=== PATIENT | male | born 1970 | race Caucasian/White ===

== ENCOUNTER 2016-09-16 14:57 | Emergency (ER) | payer MEDICAID, OTHER ==
--- NOTE | 2016-09-16 15:00 | EDPHY ---
H & P Time Seen by Provider: 09/16/16 14:57 HPI/ROS: CHIEF COMPLAINT: Seizure HISTORY OF PRESENT ILLNESS: 46-year-old man was moving a couch at the [email or web address] with a friend who does not see him very often. He said he felt funny and then his eyes rolled back, his friend helped him to the ground, and then he had a 2 minutes seizure. No trauma. Patient was confused on EMS arrival but glucose was 96. In the emergency department he has no complaints. REVIEW OF SYSTEMS: Eye: no change in vision ENT: no sore throat Cardiac: no chest pain or syncope or palpitation Pulmonary: no cough or SOB Abdomen: no vomiting, diarrhea, abdominal pain Musculoskeletal: no back pain or neck pain Skin: no rash Neuro: Mild headache Constitutional: no fever : no urinary symptoms A comprehensive 10 point review of systems is otherwise negative aside from elements mentioned in the history of present illness. PAST MEDICAL HISTORY: History of seizures, seen in the emergency department [facility] sneha Joiner for same. Social history: No drugs, neurologist is Dr. Hayden in [place]. Nonsmoker. General Appearance: Alert and conversant, cooperative. Eyes: No scleral icterus. ENT, Mouth: Normal mucous membranes. No tongue laceration or abrasion. Respiratory: Normal respiratory effort, breath sounds equal, lungs are clear to auscultation. Cardiovascular: Regular rate and rhythm. Tachycardic. Gastrointestinal: Abdomen is soft and non tender. Neurological: Alert and oriented x self and [place] but not to events. Normally conversant. Face symmetric, normal movement and sensation in all extremities. Skin: Warm and dry, no rashes. Musculoskeletal: No peripheral edema and no joint swelling. Psychiatric: Not agitated. Emergency Department course/MDM: Emergency department visit chart by myself from [facility] sneha Joiner personally reviewed. At that time he stated to me that he has a known seizure disorder on Keppra and Trileptal. This would be his 5th visit to our emergency department for seizure. Normal saline 1 L IV. Patient is noted to have sinus tachycardia on the monitor. He denies medication noncompliance. He still has the same neurology practice in [place]. Discussed with Dr. Hayden at 1518; 600 bid trileptal, Keppra 750 bid. CO2 level suggests likely seizure. Recommends continuing current medications, no change. She asked about sending levels, we do not have capacity to test for those medication levels and have the result tonight. 1545: hr down to 110-113, oriented, not ataxic or shaky, wants DC with friend, warned no driving until OK by neurologist. Smoking Status: Never smoked Constitutional: Initial Vital Signs Temperature (C) 37 C 09/16/16 15:13 Heart Rate 139 H 09/16/16 15:13 Respiratory Rate 15 09/16/16 15:13 Blood Pressure 122/76 H 09/16/16 15:13 O2 Sat (%) 94 09/16/16 15:13 O2 Delivery Mode Room Air Allergies/Adverse Reactions: No Known Allergies Allergy (Verified 09/16/16 15:13) Home Medications: Medication Instructions Recorded Keppra 01/24/15 Trileptal 01/24/15 Medical Decision Making - Diagnostics EKG Interpretation: 12-lead EKG interpreted by me; official reading is in trace master. My interpretation is sinus tachycardia at 131. with right axis. Differential Diagnosis: Differential diagnosis considered for a seizure including but not limited to electrolyte abnormality, alcohol withdrawal, medication noncompliance, head injury, and breakthrough seizure. - Data Points Laboratory Results: Laboratory Results 09/16/16 15:00 09/16/16 15:00 09/16/16 15:00 WBC 9.41 10^3/uL (3.80-9.50) RBC 5.14 10^6/uL (4.40-6.38) Hgb 16.6 g/dL (13.7-17.5) Hct 48.1 % (40.0-51.0) MCV 93.6 fL (81.5-99.8) MCH 32.3 pg (27.9-34.1) MCHC 34.5 g/dL (32.4-36.7) RDW 11.9 % (11.5-15.2) Plt Count 329 10^3/uL (150-400) MPV 8.9 fL (8.7-11.7) Neut % (Auto) 38.1 L % (39.3-74.2) Lymph % (Auto) 53.6 H % (15.0-45.0) [place] % (Auto) 7.7 % (4.5-13.0) Eos % (Auto) 0.0 L % (0.6-7.6) Baso % (Auto) 0.3 % (0.3-1.7) Nucleat RBC Rel Count 0.0 % (0.0-0.2) Absolute Neuts (auto) 3.59 10^3/uL (1.70-6.50) Absolute Lymphs (auto) 5.04 H 10^3/uL (1.00-3.00) Absolute Monos (auto) 0.72 10^3/uL (0.30-0.80) Absolute Eos (auto) 0.00 L 10^3/uL (0.03-0.40) Absolute Basos (auto) 0.03 10^3/uL (0.02-0.10) Absolute Nucleated RBC 0.00 10^3/uL (0-0.01) Immature Gran % 0.3 % (0.0-1.1) Immature Gran # 0.03 10^3/uL (0.00-0.10) Sodium 141 mEq/L (134-144) Potassium 4.3 mEq/L (3.5-5.2) Chloride 100 mEq/L (97-110) Carbon Dioxide 13 L mEq/l (22-31) Anion Gap 28 mEq/L (8-16) BUN 14 mg/dL (7-23) Creatinine 1.1 mg/dL (0.7-1.3) Estimated GFR > 60 Glucose 119 H mg/dL (70-100) Calcium 9.9 mg/dL (8.5-10.4) Medications Given: Discontinued Medications Sodium Chloride (Ns) 1,000 mls @ 0 mls/hr IV ONCE ONE PRN Reason: Wide Open Stop: 09/16/16 15:09 Last Admin: 09/16/16 15:16 Dose: 1,000 mls Sodium Chloride (Ns) 1,000 mls @ 0 mls/hr IV ONCE ONE PRN Reason: Wide Open Stop: 09/16/16 15:09 Last Admin: 09/16/16 15:22 Dose: 1,000 mls Departure - Departure Disposition: Home, Routine, Self-Care Clinical Impression: Seizure Condition: Good Instructions: Epilepsy (ED) Additional Instructions: No driving until OK by Dr. Moore in [place]. Referrals: Patient,NotPresent [Unknown] - As per Instructions (Dr. Hayden and Dr. Moore, your neurologists in [place])
[2016-09-16] MEDS ORDERED: NS 1,000 ML IV ONE ×2 (15:08)
[2016-09-16 15:16] LABS: % IMMATURE GRANULYOCYTES 0.3 % (0.0-1.1); ABSOLUTE IMMATURE GRANULOCYTES 0.03 10^3/uL (0.00-0.10); ADD DIFF? NO; ADD MORPH? NO; ADD SCAN? NO; ATYPICAL LYMPHOCYTE FLAG 10 (0-99); FRAGMENT RBC FLAG 0 (0-99); HEMATOCRIT 48.1 % (40.0-51.0); HEMOGLOBIN 16.6 g/dL (13.7-17.5); LEFT SHIFT FLG 0 (0-99); LIPEMIA HEMOLYSIS FLAG 90 (0-99); MEAN CELL HEMOGLOBIN 32.3 pg (27.9-34.1); MEAN CELL HEMOGLOBIN CONCENTR. 34.5 g/dL (32.4-36.7); MEAN CELL VOLUME 93.6 fL (81.5-99.8); MEAN PLATELET VOLUME 8.9 fL (8.7-11.7); PLATELET CLUMPS FLAG 0 (0-99); PLATELET COUNT 329 10^3/uL (150-400); RED BLOOD CELL COUNT 5.14 10^6/uL (4.40-6.38); RED CELL DISTRIBUTION WIDTH 11.9 % (11.5-15.2)
--- NOTE | 2016-09-16 15:17 | CPEKG ---
Heart Rate: 131 RR Interval: 458 P-R Interval: 136 QRSD Interval: 82 QT Interval: 312 QTC Interval: 461 P [place]: 43 QRS [place]: 162 T Wave [place]: 4 EKG Severity - OTHERWISE NORMAL ECG - EKG Impression: SINUS TACHYCARDIA EKG Impression: RIGHT AXIS DEVIATION Electronically Signed By: Jeremy Avalos 16-Sep-2016 15:23:44
[2016-09-16 15:31] LABS: ANION GAP 28 mEq/L (8-16); CALCIUM 9.9 mg/dL (8.5-10.4); CARBON DIOXIDE 13 mEq/l (22-31); CHLORIDE 100 mEq/L (97-110); CREATININE 1.1 mg/dL (0.7-1.3); GLOMERULAR FILTRATION RATE > 60; GLUCOSE 119 mg/dL (70-100); POTASSIUM 4.3 mEq/L (3.5-5.2); SODIUM 141 mEq/L (134-144)
[2016-09-16 15:47] VITALS: BP 124/78; PULSE 109; RESP 17; TEMP 98.4; O2SAT 95
== END 2016-09-16 15:47 | disposition home or self-care (01) ==
LOC: EDUNIT#
DX: G40.909 Epilepsy, unspecified, not intractable, without status epilepticus (principal)

== ENCOUNTER 2016-11-04 15:37 | Emergency (ER) | payer MEDICAID, OTHER ==
--- NOTE | 2016-11-04 15:33 | EDPHY ---
H & P Constitutional: Initial Vital Signs Temperature (C) 36.6 C 11/04/16 15:52 Heart Rate 130 H 11/04/16 15:52 Respiratory Rate 18 11/04/16 15:52 Blood Pressure 108/64 11/04/16 15:52 O2 Sat (%) 94 11/04/16 15:52 O2 Delivery Mode Room Air Allergies/Adverse Reactions: No Known Allergies Allergy (Verified 09/16/16 15:13) Home Medications: Medication Instructions Recorded Keppra 01/24/15 Trileptal 01/24/15 Medical Decision Making ED Course/Re-evaluation: CHIEF COMPLAINT: Seizure HISTORY OF PRESENT ILLNESS: The patient is a 41 y/o male arriving via EMS with confusion after a witnessed 1-minute seizure. He has been confused but cooperative throughout transport and was able to tell EMS he takes Dilantin for a seizure disorder and has breakthrough seizures every 2-3 months. Bystanders reported to EMS he walked into a store, seemed confused, then had about 1 minute of tonic-clonic activity. He has a hematoma on his right forehead, but denies any pain, and has no evidence of incontinence. He has been tachycardic in the 140 range for EMS. He continues to be confused on initial assessment. REVIEW OF SYSTEMS: Patient is unable to answer at this time due to postictal period. PHYSICAL EXAM: HR, BP, O2 Sat, RR. Temp noted General Appearance: Alert, well hydrated, confused, and non-toxic appearing. Head: Right forehead hematoma Eyes: Pupils equal, round, reactive to light and accommodation, EOMI, no trauma , no injection. Ears: Clear bilaterally, no perforation, normal landmarks Nose: Atraumatic, no rhinorrhea, clear. Throat: There is no erythema or exudates, no lesions, normal tonsils, mucus membranes moist. Neck: Supple, nontender, no lymphadenopathy. Respiratory: No retractions, no distress, no wheezes, and no accessory muscle use. Lungs are clear to auscultation bilaterally. Cardiovascular: Tachycardic regular rate and rhythm, no murmurs, rubs, or gallops. Good capillary refill all extremities. Gastrointestinal: Abdomen is soft, nontender, non-distended, no masses, no rebound, no guarding, no peritoneal signs. No incontinence. Musculoskeletal: Normal active ROM of all extremities, atraumatic. Neurological: Alert, confused, oriented x2, cooperative and interactive. The patient has normal DTRs and non-focal cranial nerves, motor, sensory, and cerebellar exam. Skin: No rashes, good turgor, no nodules on palpation. Past medical history: Seizure disorder Past surgical history: unknown Family history: unknown Social history: Neurologist: Dr. Hayden in [place] Prior medical records reviewed including ED visit August 2016 for seizure. DIFFERENTIAL DIAGNOSIS: The differential diagnosis for the patient's seizure included but was not limited to electrolyte abnormality, alcohol withdrawal, medication noncompliance, head injury, DIRECTOR CARDIOVASCULAR structural abnormality, and break through seizure. MEDICAL DECISION MAKIN: Met EMS upon arrival and took report. This is a confused 46 y/o male with a seizure disorder who had a witnessed 1-min seizure this afternoon. He continues to be somewhat confused, but is able to tell us he takes Dilantin and has a few breakthrough seizures each year. His history shows a couple ED visits for similar presentations. No evidence of alcohol abuse in prior records or on exam. He has a small hematoma to his right forehead, but is otherwise atraumatic. Plan for head CT and labs including Dilantin level. 1540: Patient removed his own c-collar. He denies midline neck or back pain, weakness, or paresthesias. 1600: Patient is completely alert and oriented and is refusing all treatments at this time. His Dilantin level is still pending. He states he does not take Dilantin and does take Keppra. I've cancelled the CT order. He's been given return precautions and referral to neurology for follow up. I've advised him not to drive or do any activities that could put others at risk until cleared by neurology. He agrees with plan. - Data Points Laboratory Results: Laboratory Results 11/04/16 15:41 11/04/16 11/04/16 15:41 15:41 WBC 11.91 10^3/uL H 10^3/uL (3.80-9.50) RBC 4.86 10^6/uL 10^6/uL (4.40-6.38) Hgb 15.5 g/dL g/dL (13.7-17.5) Hct 49.0 % % (40.0-51.0) MCV 100.8 fL H fL (81.5-99.8) MCH 31.9 pg pg (27.9-34.1) MCHC 31.6 g/dL L g/dL (32.4-36.7) RDW 12.7 % % (11.5-15.2) Plt Count 366 10^3/uL 10^3/uL (150-400) MPV 9.4 fL fL (8.7-11.7) Neut % (Auto) 39.6 % % (39.3-74.2) Lymph % (Auto) 49.4 % H % (15.0-45.0) [place] % (Auto) 10.2 % % (4.5-13.0) Eos % (Auto) 0.0 % L % (0.6-7.6) Baso % (Auto) 0.3 % % (0.3-1.7) Nucleat RBC Rel Count 0.0 % % (0.0-0.2) Absolute Neuts (auto) 4.73 10^3/uL 10^3/uL (1.70-6.50) Absolute Lymphs (auto) 5.88 10^3/uL H 10^3/uL (1.00-3.00) Absolute Monos (auto) 1.21 10^3/uL H 10^3/uL (0.30-0.80) Absolute Eos (auto) 0.00 10^3/uL L 10^3/uL (0.03-0.40) Absolute Basos (auto) 0.03 10^3/uL 10^3/uL (0.02-0.10) Absolute Nucleated RBC 0.00 10^3/uL 10^3/uL (0-0.01) Immature Gran % 0.5 % % (0.0-1.1) Immature Gran # 0.06 10^3/uL 10^3/uL (0.00-0.10) Sodium Pending Potassium Pending Chloride Pending Carbon Dioxide Pending Anion Gap Pending BUN Pending Creatinine Pending Estimated GFR Pending Glucose Pending Calcium Pending Phenytoin Pending Departure - Departure Disposition: Home, Routine, Self-Care Clinical Impression: Breakthrough seizure Condition: Good Instructions: Recurrent Seizures in Adults (ED) Additional Instructions: Follow up with your neurologist this week. Do not drive or operate heavy machinery until cleared by your neurologist. Take your medications as directed. Return to the ED for any worsening of condition. Referrals: Patient,NotPresent [Primary Care Provider] - As per Instructions David Rodas MD [Medical Doctor] - As per Instructions Report Scribed for: Jd Grimes Report Scribed by: Tabitha Lopez Date of Report: 11/04/16 Time of Report: 15:47
[2016-11-04 15:57] LABS: % IMMATURE GRANULYOCYTES 0.5 % (0.0-1.1); ABSOLUTE IMMATURE GRANULOCYTES 0.06 10^3/uL (0.00-0.10); ADD DIFF? NO; ADD MORPH? NO; ADD SCAN? NO; ATYPICAL LYMPHOCYTE FLAG 70 (0-99); FRAGMENT RBC FLAG 0 (0-99); HEMOGLOBIN 15.5 g/dL (13.7-17.5); LEFT SHIFT FLG 0 (0-99); LIPEMIA HEMOLYSIS FLAG 80 (0-99); MEAN CELL HEMOGLOBIN 31.9 pg (27.9-34.1); MEAN CELL HEMOGLOBIN CONCENTR. 31.6 g/dL (32.4-36.7); MEAN CELL VOLUME 100.8 fL (81.5-99.8); MEAN PLATELET VOLUME 9.4 fL (8.7-11.7); PLATELET CLUMPS FLAG 10 (0-99); PLATELET COUNT 366 10^3/uL (150-400); RED BLOOD CELL COUNT 4.86 10^6/uL (4.40-6.38); RED CELL DISTRIBUTION WIDTH 12.7 % (11.5-15.2)
[2016-11-04 16:05] LABS: ANION GAP 35 mEq/L (8-16); CALCIUM 10.2 mg/dL (8.5-10.4); CHLORIDE 104 mEq/L (97-110); CREATININE 1.2 mg/dL (0.7-1.3); GLOMERULAR FILTRATION RATE > 60; GLUCOSE 150 mg/dL (70-100); POTASSIUM 3.7 mEq/L (3.5-5.2); SODIUM 148 mEq/L (134-144)
[2016-11-04 16:19] VITALS: BP 118/73; PULSE 117; RESP 16; TEMP 98.1; O2SAT 92
[2016-11-04 16:32] LABS: CARBON DIOXIDE 9 mEq/l (22-31)
== END 2016-11-04 16:19 | disposition home or self-care (01) ==
LOC: EDUNIT#
DX: G40.909 Epilepsy, unspecified, not intractable, without status epilepticus (principal)

== ENCOUNTER 2017-02-20 23:00 | Emergency (ER) | payer MEDICAID ==
[2017-02-20] MEDS ORDERED: NS 1,000 ML IV ONE (23:20)
--- NOTE | 2017-02-21 00:27 | EDPHY ---
H & P Stated Complaint: witnessed seizure, post ictal, headache Time Seen by Provider: 02/20/17 23:21 HPI/ROS: HPI The patient presents with seizure which was witnessed and occurred just prior to arrival when he was exercising at the gym. He has photosensitivity as a trigger for his seizures and feels that the lights at the gym may have caused the seizure. This has happened once before in October of this year. He has been taking his medications. He was found initially to be postictal, however on my assessment feels much better and would like to go home. He denies any trauma.. REVIEW OF SYSTEMS Constitutional: No fever, no chills. Eyes: No discharge. ENT: No sore throat. Cardiovascular: No chest pain, no palpitations. Respiratory: No cough, no shortness of breath. Gastrointestinal: No abdominal pain, no vomiting. Genitourinary: No hematuria. Musculoskeletal: No back pain. Skin: No rashes. Neurological: No headache. PMHx: Seizure disorder Soc Hx: Housed PHYSICAL General Appearance: Alert, no distress Eyes: Pupils equal and round no pallor or injection ENT, Mouth: Mucous membranes moist Respiratory: There are no retractions, lungs are clear to auscultation Cardiovascular: Regular rate and rhythm Gastrointestinal: Abdomen is soft and non-tender, no masses, bowel sounds normal Neurological: A&O, moves all extremities Skin: Warm and dry, no rashes Musculoskeletal: Neck is supple non tender Extremities: symmetrical, full range of motion Psychiatric: Patient is oriented X 3, there is no agitation Source: Patient, EMS Exam Limitations: No limitations - Personal History Current Tetanus Diphtheria and Acellular Pertussis (TDAP): Yes - Medical/Surgical History Hx Asthma: No Hx Chronic Respiratory Disease: No Hx Diabetes: No Hx Cardiac Disease: No Hx Renal Disease: No Hx Cirrhosis: No Hx Alcoholism: No Hx HIV/AIDS: No Hx Splenectomy or Spleen Trauma: No Other PMH: SEIZURE - Social History Smoking Status: Never smoked Constitutional: Initial Vital Signs Temperature (C) 36.6 C 02/20/17 23:09 Heart Rate 127 H 02/20/17 23:09 Respiratory Rate 20 02/20/17 23:09 Blood Pressure 148/80 H 02/20/17 23:09 O2 Sat (%) 93 02/20/17 23:09 O2 Delivery Mode Room Air Allergies/Adverse Reactions: No Known Allergies Allergy (Verified 09/16/16 15:13) Home Medications: Medication Instructions Recorded Keppra 01/24/15 Trileptal 01/24/15 Medical Decision Making Differential Diagnosis: This is a 46-year-old male with seizure disorder on medications, who presents brought in by ambulance after a witnessed seizure with postictal period. Now, he is awake and alert. Differential diagnosis includes epilepsy with seizure, less likely electrolyte disturbance or head injury. The patient would like to go home and I feel this is reasonable. He is now awake and alert, he has a family member the can take him home. - Data Points Medications Given: Discontinued Medications Sodium Chloride (Ns) 1,000 mls @ 0 mls/hr IV ONCE ONE PRN Reason: Wide Open Stop: 02/20/17 23:21 Last Admin: 02/20/17 23:20 Dose: 1,000 mls Departure - Departure Disposition: Home, Routine, Self-Care Clinical Impression: Seizure Condition: Good Instructions: Recurrent Seizures in Adults (ED) Referrals: UNKNOWN, [Other] - As per Instructions
[2017-02-21 00:34] VITALS: BP 117/78; PULSE 78; RESP 20; TEMP 98.1; O2SAT 97
== END 2017-02-21 00:33 | disposition home or self-care (01) ==
LOC: EDUNIT#
DX: G40.909 Epilepsy, unspecified, not intractable, without status epilepticus (principal)

== ENCOUNTER 2017-06-10 16:57 | Emergency (ER) | payer MEDICAID ==
[2017-06-10 17:06] VITALS: BP 120/72; PULSE 147; RESP 15; TEMP 98.2; O2SAT 96
[2017-06-10] MEDS ORDERED: LORazepam 2 MG/ML INJ IVP ONE (17:12)
[2017-06-10] MEDS ORDERED: NS 1,000 ML IV ONE (17:12)
--- NOTE | 2017-06-10 17:19 | EDPHY ---
H & P Time Seen by Provider: 06/10/17 16:57 HPI/ROS: CHIEF COMPLAINT: Seizure HISTORY OF PRESENT ILLNESS: 47-year-old male presents to the emergency department after having a witnessed seizure and the grass in his yd. This was witnessed by neighbors. Patient has a known seizure disorder. It is not clear what medications he is taking or if he is compliant with his medications. He complains of a mild headache. He has been confused consistent with being postictal since the seizure per EMS. No reported trauma. No chest pain or difficulty breathing. No neck pain or back pain. No abdominal pain. No injury to upper or lower extremities. He denies substance abuse or alcohol. REVIEW OF SYSTEMS: Constitutional: No fever, no chills. Eyes: No double or blurry vision. ENT: No sore throat. Respiratory: No cough, no shortness of breath. Cardiac: No chest pain. Gastrointestinal: No abdominal pain, vomiting or diarrhea. Genitourinary: No dysuria. Musculoskeletal: No neck or back pain. Skin: No rashes. Neurological: Headache. Past Medical/Surgical History: Seizure disorder Social History: Single Smoking Status: Never smoked Physical Exam: General Appearance: Alert, no distress. Confused. No visible signs of trauma to his head. Eyes: Pupils equal and round. Extraocular motions are all intact. ENT: Mouth: Mucous membranes moist. Respiratory: No wheezing, rhonchi, or rales, lungs are clear to auscultation. Cardiovascular: Regular rate and rhythm. Gastrointestinal: Abdomen is soft and nontender, no masses, no rebound or guarding, bowel sounds normal. Neurological: Alert and oriented x 2 confused on date., cranial nerves II through XII grossly intact Skin: Warm and dry, no rashes. Musculoskeletal: Nontender to palpate along the cervical, thoracic or lumbar spine. Neck is supple. Extremities: Full range of motion and no peripheral edema. Psychiatric: no agitation. Constitutional: Initial Vital Signs Temperature (C) 36.8 C 06/10/17 17:05 Heart Rate 147 H 06/10/17 17:05 Respiratory Rate 15 06/10/17 17:05 Blood Pressure 120/72 06/10/17 17:05 O2 Sat (%) 96 06/10/17 17:05 O2 Delivery Mode Room Air Allergies/Adverse Reactions: No Known Allergies Allergy (Verified 06/10/17 17:05) Home Medications: Medication Instructions Recorded Keppra 01/24/15 Trileptal 01/24/15 Medical Decision Making ED Course/Re-evaluation: 47-year-old male presents to the emergency department after having a witnessed seizure. He has an elevated heart rate. He is still confused. He was refusing an IV and laboratory studies by EMS. Patient is refusing IV fluids and IV Ativan. The patient was re-evaluated multiple times. He is now alert and oriented x4. He states that he takes Keppra 750 mg twice daily and thinks that he may have missed a dose. He was given 750 mg of oral Keppra in the emergency department. The patient is ambulatory. He has no complaints. He will be discharged home. The case was discussed with Dr. Hawley, secondary supervising physician, who did not directly evaluate the patient but agrees with treatment and plan. Differential Diagnosis: Seizure including but not limited to electrolyte abnormality, alcohol withdrawal , medication noncompliance, head injury, and breakthrough seizure. - Data Points Medications Given: Discontinued Medications Sodium Chloride (Ns) 1,000 mls @ 0 mls/hr IV ONCE ONE PRN Reason: Wide Open Stop: 06/10/17 17:13 Last Admin: 06/10/17 17:27 Dose: Not Given Levetiracetam (Keppra) 750 mg PO EDNOW ONE Stop: 06/10/17 17:37 Last Admin: 06/10/17 17:41 Dose: 750 mg Lorazepam (Ativan Injection) 1 mg IVP EDNOW ONE Stop: 06/10/17 17:13 Last Admin: 06/10/17 17:27 Dose: Not Given Departure - Departure Disposition: Home, Routine, Self-Care Clinical Impression: Seizure disorder Condition: Good Instructions: Epilepsy (ED) Additional Instructions: Continue Keppra twice daily as prescribed. You should not drive a car or operate machinery until cleared by a neurologist. Referrals: Vic Zhang DO [Doctor of Osteopathy] - 2-3 days, call for appt. ( Neurologist on-call)
[2017-06-10] MEDS ORDERED: levETIRAcetam 500 MG TAB PO ONE (17:36)
== END 2017-06-10 17:47 | disposition home or self-care (01) ==
LOC: EDUNIT#
DX: G40.909 Epilepsy, unspecified, not intractable, without status epilepticus (principal)

== ENCOUNTER 2017-11-05 02:16 | Emergency (ER) | payer MEDICAID ==
[2017-11-05 02:21] VITALS: BP 128/84; PULSE 138; RESP 16; O2SAT 93
[2017-11-05] MEDS ORDERED: LORazepam 2 MG/ML INJ IVP ONE (02:21)
[2017-11-05] MEDS ORDERED: NS 1,000 ML IV ONE ×2 (02:21)
--- NOTE | 2017-11-05 02:24 | EDPHY ---
H & P Stated Complaint: seizure on [facility] dance floor Time Seen by Provider: 11/05/17 02:20 HPI/ROS: HPI CHIEF COMPLAINT: Seizure HISTORY OF PRESENT ILLNESS: Patient very pleasant 47-year-old male, presents emergency room by EMS after he had a witnessed seizure while at a dance club [employer] party. He denies any drug use but does admit to alcohol this evening. However upon arrival he is noted to be tachycardic and is pupils are around 7 mm minimally reactive to light. He does state his friends were using ecstasy and cocaine. He denies any chest pain or shortness of breath. Denies headache. He does report to me he has had seizures in the past. He takes Keppra for his seizures disorder. Past Medical History: Seizure disorder on Keppra Past Surgical History: Denies surgical history Social History: Alcohol this evening. Denies drug use. Family History: Noncontributory ROS REVIEW OF SYSTEMS: A comprehensive 10 point review of systems is otherwise negative aside from elements mentioned in the history of present illness. Exam Constitutional appears well nontoxic triage nursing summary reviewed, vital signs reviewed, awake/alert. Eyes normal conjunctivae and sclera, EOMI, pupils are large 7 mm minimally reactive light but equal, HENT normal inspection, atraumatic, moist mucus membranes, no epistaxis, neck supple/ no meningismus, no raccoon eyes. Respiratory clear to auscultation bilaterally, normal breath sounds, no respiratory distress, no wheezing. Cardiovascular tachycardic, regular rhythm, no murmur, no edema, distal pulses normal. Gastrointestinal soft, non-tender, no rebound, no guarding, normal bowel sounds, no distension, no pulsatile mass. Genitourinary no CVA tenderness. Musculoskeletal no midline vertebral tenderness, full range of motion, no calf swelling, no tenderness of extremities, no meningismus, good pulses, neurovascularly intact. Skin pink, warm, & dry, no rash, skin atraumatic. Neurologic awake, alert and oriented x 3, AAOx3, moves all 4 extremities equally, motor intact, sensory intact, CN II-XII intact, normal cerebellar, normal vision, normal speech. Psychiatric normal mood/affect. Heme/Lymph/Immune no lymphadenopathy. Differential Diagnosis: Includes but is not limited to in a particular order acute so dinner, breakthrough seizure, epilepsy, drug intoxication, alcohol intoxication, electrolyte abnormality, hyponatremia, dehydration Medical Decision Making: Plan for this patient CT head without contrast given that he has seizure and then was seizing on the dance floor with hitting his head on the floor. Check basic blood work, gentle IV fluids, IV Ativan, and re- evaluate. Re-evaluation: 0232: Patient is refusing CT head without contrast. 0245: Patient has notifying staff as well as myself that he wants to leave against medical advice. I had a long conversation with him and I encouraged him to stay at least for observation for little bit in the emergency room and to make sure his blood work is appropriate he does not have a critically low sodium. Also recommend that he gets a dose Keppra slowly does not another seizure event. However the patient refused all his treatment. He is refusing observation in emergency room refusing further medical test including imaging of his head. Patient wants to leave against medical advice he understands the risk of doing so. He understands he could have great morbidity or mortality. Significant oral logical dysfunction. He has capacity make this decision and understands the risk of leaving against medical advice without further medical care or treatment or workup. Source: Patient, EMS - Personal History Current Tetanus/Diphtheria Vaccine: Unsure Current Tetanus Diphtheria and Acellular Pertussis (TDAP): Unsure - Medical/Surgical History Hx Asthma: No Hx Chronic Respiratory Disease: No Hx Diabetes: No Hx Cardiac Disease: No Hx Renal Disease: No Hx Cirrhosis: No Hx Alcoholism: No Hx HIV/AIDS: No Hx Splenectomy or Spleen Trauma: No Other PMH: seizures - Social History Smoking Status: Never smoked Constitutional: Initial Vital Signs Heart Rate 138 H 11/05/17 02:15 Respiratory Rate 16 11/05/17 02:15 Blood Pressure 128/84 H 11/05/17 02:15 O2 Sat (%) 93 11/05/17 02:15 O2 Delivery Mode Room Air Allergies/Adverse Reactions: No Known Allergies Allergy (Verified 06/10/17 17:05) Home Medications: Medication Instructions Recorded Keppra 01/24/15 Trileptal 01/24/15 Medical Decision Making - Data Points Laboratory Results: Laboratory Results 11/05/17 02:19 11/05/17 11/05/17 11/05/17 02:35 02:19 02:19 WBC RBC Hgb Hct MCV MCH MCHC RDW Plt Count MPV Neut % (Auto) Lymph % (Auto) [place] % (Auto) Eos % (Auto) Baso % (Auto) Nucleat RBC Rel Count Absolute Neuts (auto) Absolute Lymphs (auto) Absolute Monos (auto) Absolute Eos (auto) Absolute Basos (auto) Absolute Nucleated RBC Immature Gran % Immature Gran # PT 14.8 SEC SEC (12.0-15.0) INR 1.14 (0.83-1.16) APTT 26.6 SEC SEC (23.0-38.0) Sodium Pending Potassium Pending Chloride Pending Carbon Dioxide Pending Anion Gap Pending BUN Pending Creatinine Pending Estimated GFR Pending Glucose Pending Calcium Pending Total Bilirubin Pending Conjugated Bilirubin Pending Unconjugated Bilirubin Pending AST Pending ALT Pending Alkaline Phosphatase Pending Total Protein Pending Albumin Pending Lipase Pending Urine Color Pending Urine Appearance Pending Urine pH Pending Ur Specific [place] Pending Urine Protein Pending Urine Ketones Pending Urine Blood Pending Urine Nitrate Pending Urine Bilirubin Pending Urine Urobilinogen Pending Ur Leukocyte Esterase Pending Urine Glucose Pending Urine Opiates Screen Pending Urine Barbiturates Pending Ur Phencyclidine Scrn Pending Ur Amphetamine Screen Pending U Benzodiazepines Scrn Pending Urine Cocaine Screen Pending U Marijuana (THC) Screen Pending Ethyl Alcohol Pending 11/05/17 02:19 WBC 12.49 10^3/uL H 10^3/uL (3.80-9.50) RBC 4.76 10^6/uL 10^6/uL (4.40-6.38) Hgb 15.7 g/dL g/dL (13.7-17.5) Hct 45.0 % % (40.0-51.0) MCV 94.5 fL fL (81.5-99.8) MCH 33.0 pg pg (27.9-34.1) MCHC 34.9 g/dL g/dL (32.4-36.7) RDW 12.0 % % (11.5-15.2) Plt Count 332 10^3/uL 10^3/uL (150-400) MPV 8.8 fL fL (8.7-11.7) Neut % (Auto) 71.8 % % (39.3-74.2) Lymph % (Auto) 20.7 % % (15.0-45.0) [place] % (Auto) 6.7 % % (4.5-13.0) Eos % (Auto) 0.0 % L % (0.6-7.6) Baso % (Auto) 0.2 % L % (0.3-1.7) Nucleat RBC Rel Count 0.0 % % (0.0-0.2) Absolute Neuts (auto) 8.97 10^3/uL H 10^3/uL (1.70-6.50) Absolute Lymphs (auto) 2.59 10^3/uL 10^3/uL (1.00-3.00) Absolute Monos (auto) 0.84 10^3/uL H 10^3/uL (0.30-0.80) Absolute Eos (auto) 0.00 10^3/uL L 10^3/uL (0.03-0.40) Absolute Basos (auto) 0.02 10^3/uL 10^3/uL (0.02-0.10) Absolute Nucleated RBC 0.00 10^3/uL 10^3/uL (0-0.01) Immature Gran % 0.6 % % (0.0-1.1) Immature Gran # 0.07 10^3/uL 10^3/uL (0.00-0.10) PT INR APTT Sodium Potassium Chloride Carbon Dioxide Anion Gap BUN Creatinine Estimated GFR Glucose Calcium Total Bilirubin Conjugated Bilirubin Unconjugated Bilirubin AST ALT Alkaline Phosphatase Total Protein Albumin Lipase Urine Color Urine Appearance Urine pH Ur Specific [place] Urine Protein Urine Ketones Urine Blood Urine Nitrate Urine Bilirubin Urine Urobilinogen Ur Leukocyte Esterase Urine Glucose Urine Opiates Screen Urine Barbiturates Ur Phencyclidine Scrn Ur Amphetamine Screen U Benzodiazepines Scrn Urine Cocaine Screen U Marijuana (THC) Screen Ethyl Alcohol Departure - Departure Disposition: Against Medical Advice Clinical Impression: Alcohol intoxication Qualifiers: Complication of substance-induced condition: uncomplicated Qualified Code(s): F10.920 - Alcohol use, unspecified with intoxication, uncomplicated Condition: Good Instructions: Alcohol Intoxication (ED), Abuse of Alcohol (ED) Referrals: Patient,NotPresent [Unknown] - As per Instructions
[2017-11-05 02:32] LABS: PLATELET COUNT 332 10^3/uL (150-400)
[2017-11-05 02:41] LABS: INR 1.14 (0.83-1.16); PROTIME(PATIENT) 14.8 SEC (12.0-15.0)
== END 2017-11-05 02:49 | disposition left against medical advice (07) ==
LOC: EDUNIT#
DX: F10.920 Alcohol use, unspecified with intoxication, uncomplicated (principal)
CPT/HCPCS: 80305; G0480; J2060

== ENCOUNTER 2018-01-23 10:49 | Emergency (ER) | payer MEDICAID ==
[2018-01-23 10:55] VITALS: BP 137/92
[2018-01-23] MEDS ORDERED: PROPARACAINE/FLUORESCEIN SOD 5 ML OPHT.BTL ONE (11:06)
--- NOTE | 2018-01-23 11:44 | EDPHY ---
H & P Smoking Status: Never smoked Time Seen by Provider: 01/23/18 11:13 HPI/ROS: CHIEF COMPLAINT: Left eye swelling, itching, redness HISTORY OF PRESENT ILLNESS: 47-year-old male with no corrective lens use history awoke with left periorbital edema, itching, clear discharge, nasal congestion and rhinorrhea. No pain with extraocular movements. No ocular trauma. He does note that last evening he bumped his right temporal parietal region against a counter with no loss of consciousness. No nausea or vomiting. No headache. No midline C-spine pain. No peripheral paresthesia, weakness, numbness. PHYSICAL EXAM (Prior to examination, patient consented to physical exam, hands were washed and my usual and customary physical exam procedures followed) 1) GENERAL: Well-developed, well-nourished, alert and oriented. Appears to be in no acute distress. 2) HEAD: Normocephalic 3) HEENT: sclera anicteric 4) LUNGS: Breathing comfortably. 5) OCULAR EXAM: Visual Acuity: noted from Nurse's notes. Pupils:equal round and reactive to light EOMI Lids: periorbital edema noted with no tenderness no induration. No crepitus no vesicles., upper and lower lids were everted and no foreign bodies were visualized, no areas of increased fluorescein uptake. Skin: no proptosis, no periorbital erythema or swelling, no vesicles, no pain with extraocular movements. Conjunctivae: Injected with clear discharge, negative Marie test. Cornea: exam with fluorescein showsno areas of increased uptake, no evidence of abrasion, ulceration, no dendritic appearance. Anterior chamber:normal, no hyphema or hypopyon ([place],D Cyn) Constitutional: Initial Vital Signs Temperature (C) 36.7 C 01/23/18 10:52 Heart Rate 82 01/23/18 10:52 Respiratory Rate 16 01/23/18 10:52 Blood Pressure 137/92 H 01/23/18 10:52 O2 Sat (%) 94 01/23/18 10:52 O2 Delivery Mode Room Air Allergies/Adverse Reactions: No Known Allergies Allergy (Verified 01/23/18 10:51) Home Medications: Medication Instructions Recorded Keppra 01/24/15 Trileptal 06/06/15 Olopatadine 0.1% [Patanol 0.1% 1 drops LEFTEYE DAILY 7 Days #1 01/23/18 Opht Drop (RX)] bottle MDM/Departure - [facility] ED Course/Re-evaluation: Suspect more than likely allergic conjunctivitis. Doubt infectious conjunctivitis. Doubt periorbital or orbital cellulitis. Plan will be prescription of Patanol, cool compresses, avoidance of allergens. Feels comfortable being discharged. All questions and concerns addressed by myself. I saw this patient independently based on established practice protocols. Care of patient under supervision of secondary supervising physician Dr Jerome Benton. ADDENDUM: Patient did not wait for his aftercare instructions stating that he had an urgent appointment that he needed to keep. (Duncan Wood) I did not see this patient while he was in the emergency department. However his care was discussed with the PA while the patient was in the department. I agree with treatment plan and management (Jerome Benton S) - Depart Disposition: Home, Routine, Self-Care Clinical Impression: Allergic conjunctivitis Qualifiers: Laterality: left Qualified Code(s): H10.12 - Acute atopic conjunctivitis, left eye Condition: Good Instructions: Conjunctivitis (ED) Additional Instructions: Return to the ER if you develop a eye pain, sensory to light, change in vision or any other symptoms that concern you Prescriptions: Olopatadine 0.1% [Patanol 0.1% Opht Drop (RX)] 1 drops LEFTEYE DAILY 7 Days #1 bottle Referrals: Vic Kirkpatrick DO [Primary Care Provider] - As per Instructions
== END 2018-01-23 12:10 | disposition home or self-care (01) ==
DX: H10.12 Acute atopic conjunctivitis, left eye (principal)

== ENCOUNTER 2018-05-05 13:55 | Emergency (ER) | payer MEDICAID ==
--- NOTE | 2018-05-05 14:28 | EDPHY ---
H & P Time Seen by Provider: 05/05/18 14:27 HPI/ROS: CHIEF COMPLAINT: [ ] HISTORY OF PRESENT ILLNESS: [ ] REVIEW OF SYSTEMS: Constitutional: No fever, no chills. Eyes: No discharge. ENT: No sore throat. Cardiovascular: No chest pain, no palpitations. Respiratory: No cough, no shortness of breath. Gastrointestinal: No abdominal pain, no vomiting. Genitourinary: No hematuria. Musculoskeletal: No back pain. Skin: No rashes. Neurological: No headache. Smoking Status: Never smoked Physical Exam: General Appearance: Alert and no distress. Eyes: Pupils equal and round no injection. Respiratory: Chest is nontender, lungs are clear to auscultation. Cardiac: regular rate and rhythm. Gastrointestinal: Abdomen is soft and nontender, no masses, bowel sounds normal. Musculoskeletal: Neck is supple and nontender. Extremities have full range of motion and are nontender. Skin: No rashes or lesions. Constitutional: Initial Vital Signs Temperature (C) 36.7 C 05/05/18 14:01 Heart Rate 88 05/05/18 14:01 Respiratory Rate 18 05/05/18 14:01 Blood Pressure 124/65 H 05/05/18 14:01 O2 Sat (%) 94 05/05/18 14:01 O2 Delivery Mode Room Air Allergies/Adverse Reactions: No Known Allergies Allergy (Verified 05/05/18 14:00) Home Medications: Medication Instructions Recorded Keppra 01/24/15 Trileptal 01/24/15 Departure - Departure Referrals: Vic Kirkpatrick DO [Primary Care Provider] - As per Instructions
[2018-05-05] MEDS ORDERED: HYDROCODONE/APAP 5/325 TAB PO ONE (16:06)
[2018-05-05 16:55] VITALS: BP 127/71
== END 2018-05-05 16:57 | disposition home or self-care (01) ==
DX: S20.219A Contusion of unspecified front wall of thorax, initial encounter (principal); S49.92XA Unspecified injury of left shoulder and upper arm, initial encounter; W19.XXXA Unspecified fall, initial encounter; G40.909 Epilepsy, unspecified, not intractable, without status epilepticus
CPT/HCPCS: A4565

== ENCOUNTER 2018-07-07 12:43 | Emergency (ER) | payer MEDICAID ==
[2018-07-07] MEDS ORDERED: NS 1,000 ML IV ONE (12:52)
[2018-07-07 13:22] VITALS: BP 116/67
--- NOTE | 2018-07-07 13:59 | EDPHY ---
General Time Seen by Provider: 07/07/18 13:57 Narrative: CHIEF COMPLAINT: Seizure HISTORY OF PRESENT ILLNESS: Patient arrives by EMS with complaints of seizure. He states that he was playing basketball at a gym earlier this morning when he had a seizure on his way out. He does not recall the details of the event. Bystanders contacted EMS and he arrives without evidence of seizure activity. He says he has no headache, shoulder pain, chest, back or extremity pain. He has known seizure disorder on 2 medications. His last seizure was October. He denies any substance use or abuse. He denies any headache or anticoagulation use. He has no modifying factors and does not want any further workup during my examination. No other associated complaints or modifying factors REVIEW OF SYSTEMS: 10 systems were reviewed and negative with the exception of the elements mentioned in the history of present illness. PCP: [facility] SPECIALISTS: Neurology at [facility] PAST MEDICAL HISTORY: Seizure disorder PAST SURGICAL HISTORY: No recent surgical history. SOCIAL HISTORY: Lives independently. FAMILY HISTORY: Noncontributory EXAMINATION: Limited by patient refusal to have full examination Vitals: Triage VS reviewed General Appearance: Alert, no distress Head: normocephalic, atraumatic no Landa sign, raccoon eyes or outward signs of trauma. Eyes: Pupils equal and round. No nystagmus or dysconjugate gaze. Neurological: Alert. GCS 15. Unable to test cranial nerves as he declines testing. Patient ambulating without any ataxia. Unable to test strength of sensory. Skin: Warm and dry. Grossly intact with multiple tattoos. DIFFERENTIAL DIAGNOSES: Including but not limited to seizure, recurrent seizure, status epilepticus, hypoglycemia, hyponatremia MDM: 1:55 p.m. Suspected recurrent seizure in a patient with known seizure disorder. He says that he occasionally has breakthrough seizures, last 1 in October of this year. He is feeling well. He is ambulating and declining any further test or examination. He does have a chemistry that was obtained when he arrived that shows no significant abnormality but is consistent with seizure. There is no evidence of provoked seizure. No evidence of status epilepticus. He is alert. He is ambulatory I do feel that he has the ability to understand the risks of discharge home without further workup. I also feel he is stable for discharge home without any further workup. He will follow up with his established neurologist and has an appointment with them early next week. We discussed ED precautions. We discussed driving restrictions. Discharged stable condition. SUPERVISION: This patient was independently evaluated without direct involvement of or examination by the attending physician. CONSULTATION: None - History Smoking Status: Never smoked - Objective Vital Signs: Initial Vital Signs Temperature (C) 97.9 F 07/07/18 12:47 Heart Rate 145 H 07/07/18 12:47 Respiratory Rate 16 07/07/18 12:47 Blood Pressure 137/80 H 07/07/18 12:47 O2 Sat (%) 96 07/07/18 12:47 O2 Delivery Mode Room Air Allergies/Adverse Reactions: No Known Allergies Allergy (Verified 05/05/18 14:00) Home Medications: Medication Instructions Recorded Keppra 01/24/15 Trileptal 01/24/15 Laboratory Results: Laboratory Results 07/07/18 13:00 07/07/18 13:00 Sodium 141 mEq/L mEq/L (135-145) Potassium 3.6 mEq/L mEq/L (3.3-5.0) Chloride 100 mEq/L mEq/L (97-110) Carbon Dioxide 10 mEq/l L mEq/l (22-31) Anion Gap 31 mEq/L H mEq/L (6-14) BUN 16 mg/dL mg/dL (7-23) Creatinine 1.2 mg/dL mg/dL (0.7-1.3) Estimated GFR > 60 Glucose 111 mg/dL H mg/dL (70-100) Calcium 9.8 mg/dL mg/dL (8.5-10.4) Medications Given: Discontinued Medications Sodium Chloride (Ns) 1,000 mls @ 0 mls/hr IV ONCE ONE; Wide Open PRN Reason: Protocol Stop: 07/07/18 12:53 Last Admin: 07/07/18 12:57 Dose: 1,000 mls Departure - Departure Disposition: Home, Routine, Self-Care Clinical Impression: 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 Follow up with primary care physician and established neurologist 2. ED precautions for further seizure 3. No driving per Neurology Referrals: Vic Zhang DO [Doctor of Osteopathy] - As per Instructions
== END 2018-07-07 14:22 | disposition home or self-care (01) ==
LOC: EDUNIT#
DX: G40.909 Epilepsy, unspecified, not intractable, without status epilepticus (principal); E86.9 Volume depletion, unspecified